=== PATIENT | female | born 1935 | race Caucasian/White ===

== ENCOUNTER 2017-06-22 11:05 | Emergency (ER) | payer MEDICARE, OTHER ==
[~2017-06-22] VITALS: Ht 162.6 cm; Wt 72.0 kg
[~2017-06-22 11:05] MED LIST: AMLODIPINE5 MG PO; ATENOLOL25 MG PO; BABY ASPIRIN81 MG OR; BACTROBAN2 % EX; BAYER ASPIRIN E81 MG PO; BENICAR20 MG PO; CALCIUM CHEL1 CAP OR; CEPHALEXIN500 MG OR; COZAAR; COZAAR50 MG OR; CRESTOR10 MG PO; FISH OIL300 MG OR; FUROSEMIDE20 MG PO; GLUCOS/CHOND1 CA1 OR; LEVOTHYROXIN25 MC1 PO; LOPID600 MG OR; LOPRESSOR50 MG OR; NITROGLYCER0.4 MG SL; NITROSTAT0.4 MG PO; NORVASC10 MG OR; PLAVIX75 MG OR; PLETAL50 MG OR; TYLENOL325 MG PO; ULTRAM50 M1 OR; ZEMPLAR2 MCG OR; [UNRECOGNIZED DRUG - REMARK]
[2017-06-22 11:47] LABS: HEMATOCRIT 44.4 % (37.0-47.0); HEMOGLOBIN 15.1 g/dl (12.0-16.0); MEAN CELL VOLUME 93.3 fL CALC (80.0-100.0); MEAN CORPUSCULAR HGB 31.7 pG CALC (26.0-32.0); NEUT# 18.93 thou/uL (2.00-7.15); RED BLOOD COUNT 4.76 mill/uL (4.20-5.60); RED CELL DISTRI WIDTH 13.2 % (11.5-15.5)
[2017-06-22 12:11] LABS: ALBUMIN 4.4 g/dL (3.2-5.0); BILIRUBIN, TOTAL 1.5 mg/dL (0.0-1.4); CALCIUM 9.9 mg/dL (8.4-10.2); CREATININE 1.6 mg/dL (0.5-1.0); POTASSIUM 4.8 mmol/l (3.5-5.1); TOTAL PROTEIN 7.5 g/dL (6.3-8.2)
[2017-06-22 14:46] VITALS: BP 136/77
[2017-06-22 16:00] LABS: URINE BILIRUBIN - DIPSTICK NEGATIVE (NEGATIVE); URINE BLOOD DIPSTICK SMALL (NEGATIVE); URINE COLOR YELLOW; URINE GLUCOSE - DIPSTICK NEGATIVE (NEGATIVE); URINE KETONE NEGATIVE (NEGATIVE); URINE NITRITE - DIPSTICK NEGATIVE (Negative); URINE PROTEIN - DIPSTICK 100 mg/dL (NEG-TRACE); URINE SPECIFIC GRAVITY >=1.030; URINE UROBILINOGEN - DIPSTICK 0.2 E.U./dL (0.2)
[2017-06-22 16:02] LABS: URINE CLARITY SLIGHT CLOUDY; URINE LEUK ESTERASE MODERATE (NEGATIVE)
[2017-06-22 16:03] LABS: URINE SQUAMOUS EPITHELIAL CELL FEW EPI/hpf (0-FEW); URINE WBC 20-50 WBC/hpf (0-5)
== END 2017-06-22 14:48 | disposition short-term general hospital (02) ==
LOC: ED 11:05
PROVIDERS: Emergency Medicine
DX: I21.4 Non-ST elevation (NSTEMI) myocardial infarction (principal); I11.0 Hypertensive heart disease with heart failure; I50.9 Heart failure, unspecified; F17.210 Nicotine dependence, cigarettes, uncomplicated; M19.90 Unspecified osteoarthritis, unspecified site

== ENCOUNTER 2017-07-03 20:54 | Emergency (ER) | payer MEDICARE, OTHER ==
[~2017-07-03] VITALS: Ht 162.6 cm; Wt 60.0 kg
[2017-07-03 21:36] LABS: HEMATOCRIT 39.2 % (37.0-47.0); HEMOGLOBIN 12.8 g/dl (12.0-16.0); IMMATURE GRANULOCYTES 5.7 % (0.0-1.0); MEAN CELL VOLUME 95.6 fL CALC (80.0-100.0); MEAN CORPUSCULAR HGB 31.2 pG CALC (26.0-32.0); MEAN CORPUSCULAR HGB CONC 32.7 g/L CALC (32.0-36.0); NEUT# 18.81 thou/uL (2.00-7.15); RED BLOOD COUNT 4.1 mill/uL (4.20-5.60)
[2017-07-03 22:00] LABS: INTERNATIONAL NORMALIZED RATIO 1.1 RATIO (0.7-1.3); PROTHROMBIN TIME 11.7 SECONDS (9.0-12.5)
[2017-07-03 22:04] LABS: ALBUMIN 3.5 g/dL (3.2-5.0); BILIRUBIN, TOTAL 0.5 mg/dL (0.0-1.4); CALCIUM 9.4 mg/dL (8.4-10.2); CREATININE 1.7 mg/dL (0.5-1.0); TOTAL PROTEIN 6.7 g/dL (6.3-8.2)
[2017-07-03 22:08] LABS: URINE BILIRUBIN - DIPSTICK NEGATIVE (NEGATIVE); URINE BLOOD DIPSTICK NEGATIVE (NEGATIVE); URINE COLOR YELLOW; URINE GLUCOSE - DIPSTICK NEGATIVE (NEGATIVE); URINE KETONE NEGATIVE (NEGATIVE); URINE LEUK ESTERASE NEGATIVE (NEGATIVE); URINE NITRITE - DIPSTICK NEGATIVE (Negative); URINE PH 5.5 (4.5-8.0); URINE PROTEIN - DIPSTICK TRACE mg/dL (NEG-TRACE); URINE UROBILINOGEN - DIPSTICK 0.2 E.U./dL (0.2)
[2017-07-03 22:09] LABS: POTASSIUM 5.4 mmol/l (3.5-5.1)
[2017-07-03 22:25] LABS: URINE CLARITY CLEAR
[2017-07-04 00:45] VITALS: BP 93/62
== END 2017-07-04 00:44 | disposition short-term general hospital (02) ==
LOC: ED 20:54
PROVIDERS: Emergency Medicine
DX: I11.0 Hypertensive heart disease with heart failure (principal); I50.9 Heart failure, unspecified; R06.02 Shortness of breath; R94.31 Abnormal electrocardiogram [ECG] [EKG]; F17.210 Nicotine dependence, cigarettes, uncomplicated

== ENCOUNTER 2017-07-08 02:33 | Emergency (ER) | payer MEDICARE, OTHER ==
[~2017-07-08] VITALS: Ht 162.6 cm; Wt 100.0 kg
[2017-07-08] MEDS ORDERED: ECOTRIN LOW STR81 MG PO (02:55)
[2017-07-08] MEDS ORDERED: CRESTOR5 MG PO (02:55)
[2017-07-08] MEDS ORDERED: METOPROLOL SUC100 MG PO (02:57)
[2017-07-08] MEDS ORDERED: CLOPIDOGREL75 MG PO (02:57)
[2017-07-08] MEDS ORDERED: AMIODARONE200 MG PO (03:00)
[2017-07-08] MEDS ORDERED: LEVOTHYROXIN50 MCG PO (03:01)
[2017-07-08 03:35] LABS: HEMATOCRIT 34.8 % (37.0-47.0); HEMOGLOBIN 11.3 g/dl (12.0-16.0); IMMATURE GRANULOCYTES 3.9 % (0.0-1.0); MEAN CELL VOLUME 95.9 fL CALC (80.0-100.0); MEAN CORPUSCULAR HGB 31.1 pG CALC (26.0-32.0); MEAN CORPUSCULAR HGB CONC 32.5 g/L CALC (32.0-36.0); NEUT# 18.13 thou/uL (2.00-7.15); RED BLOOD COUNT 3.63 mill/uL (4.20-5.60)
[2017-07-08 03:53] LABS: ALBUMIN 3.4 g/dL (3.2-5.0); BILIRUBIN, TOTAL 0.5 mg/dL (0.0-1.4); CALCIUM 9.2 mg/dL (8.4-10.2); CREATININE 1.6 mg/dL (0.5-1.0); PROTHROMBIN TIME 11.3 SECONDS (9.0-12.5); TOTAL PROTEIN 6.2 g/dL (6.3-8.2)
[2017-07-08 04:00] LABS: POTASSIUM 5.4 mmol/l (3.5-5.1)
[2017-07-08 05:00] VITALS: BP 121/62
[2017-07-08 06:05] LABS: URINE BILIRUBIN - DIPSTICK NEGATIVE (NEGATIVE); URINE BLOOD DIPSTICK NEGATIVE (NEGATIVE); URINE COLOR YELLOW; URINE GLUCOSE - DIPSTICK NEGATIVE (NEGATIVE); URINE KETONE NEGATIVE (NEGATIVE); URINE LEUK ESTERASE TRACE (NEGATIVE); URINE NITRITE - DIPSTICK NEGATIVE (Negative); URINE PROTEIN - DIPSTICK NEGATIVE (NEG-TRACE); URINE SPECIFIC GRAVITY 1.015; URINE UROBILINOGEN - DIPSTICK 0.2 E.U./dL (0.2)
[2017-07-08 06:07] LABS: URINE CLARITY SL CLOUDY
== END 2017-07-08 05:20 | disposition short-term general hospital (02) ==
LOC: ED 02:33
PROVIDERS: Emergency Medicine
DX: I11.0 Hypertensive heart disease with heart failure (principal); I50.9 Heart failure, unspecified; D72.829 Elevated white blood cell count, unspecified; R74.8 Abnormal levels of other serum enzymes; F17.210 Nicotine dependence, cigarettes, uncomplicated; M19.90 Unspecified osteoarthritis, unspecified site